=== PATIENT | female | born 1960 | race Caucasian/White ===

== ENCOUNTER 2020-12-29 06:59 | Outpatient (CLI) | payer OTHER, SELFPAY ==
--- NOTE | 2020-12-29 07:03 | US_ITS ---
WS: [id number] Complete ABDOMINAL ULTRASOUND HISTORY: RUQ PAIN COMPARISON: None available. Liver: Liver is top normal size. Hepatic steatosis. No mass or bile duct dilatation. cm in length. Gallbladder: Normally distended gallbladder is not identified. There is shadowing from the region of the gallbladder fossa which may be a stone filled gallbladder. No history of prior cholecystectomy pr ovided. Pancreas: Normal size and echogenicity. CBD: 0.4 cm. Right kidney: 12.5 cm x 6.4 cm x 4.1 cm. No mass, cortical thickening or hydronephrosis. Left kidney: 11.3 cm x 5.5 cm x 5.0 cm. No mass, cortical thickening or hydronephrosis. Spleen: Normal size and echogenicity. Abdominal aorta and IVC are within normal limits. No ascites. US/US abdomen complete* [id number] IMPRESSION: 1. Gallbladder not identified. Shadowing from the region of gallbladder fossa may be a stone filled gallbladder or bowel. No peristalsis evident. 2. No bile duct dilatation. 3. Mild hepatic steatosis.
== END 2020-12-29 07:00 | disposition home or self-care (01) ==
PROVIDERS: PCP Internal Medicine; Visit Provider Specialist
DX: R10.11 Right upper quadrant pain (principal); K76.0 Fatty (change of) liver, not elsewhere classified
CPT/HCPCS: 76700

== ENCOUNTER 2023-05-11 13:50 | Outpatient (CLI) | payer OTHER, SELFPAY ==
--- NOTE | 2023-05-11 13:56 | XR_ITS ---
WS: [id number] SCREENING DEXA SCAN [facility] CLINICAL INFORMATION: ASYMPTOMATIC POSTMENOPAUSAL STATUS COMPARISON: None. FINDINGS: The L1-L4 bone mineral density measures 1.248 g/cm2. This corresponds to a T score score of 0.6 and Z score of 3.2. Left femoral neck bone mineral density measures 0.977 g/cm2. This corresponds to a T score of -0.2 an d Z score of 1.7. Right femoral neck bone mineral density measures 0.998 g/cm2. This corresponds to a T score -0.1of an d Z score of 1.8. Mean femoral neck bone mineral density measures 0.987 g/cm2. This corresponds to a T score of -0.2 an d Z score of 1.8. IMPRESSION: Normal bone mineralization. Patient's FRAX calculated 10 year probability for major osteoporotic fracture is 3.2% and osteoporoti c hip fracture is 0.2%.
== END 2023-05-11 13:51 | disposition home or self-care (01) ==
LOC: RAD 13:51
PROVIDERS: PCP Internal Medicine; Visit Provider Internal Medicine
DX: Z78.0 Asymptomatic menopausal state (principal)
CPT/HCPCS: 77080